=== PATIENT | male | born 1975 | race Caucasian/White ===

== ENCOUNTER 2023-03-23 11:40 | Emergency (ER) | payer BC, SELFPAY ==
[2023-03-23 11:51] VITALS: BP 124/81; PULSE 91; RESP 18; TEMP 36.1; O2SAT 95; BMI 29.1
[2023-03-23 11:59] VITALS: BP 118/86; PULSE 90; RESP 18; O2SAT 95
--- NOTE | 2023-03-23 12:06 | CRLHL7_ITS ---
For Patients: As a result of the 21st Century Cures Act, medical imaging exams and procedure reports are released immediately into your electronic medical record. You may view this report before your referring provider. If you have questions, please contact your health care provider. INDICATION: DIFFUSE ABD PAIN, DIARRHEA, RECTAL PAIN Indication: Diffuse abdominal pain. Diarrhea. Rectal pain. Technique: CT of the abdomen and pelvis. 77 cc of Isovue 370 IV. Coronal/sagittal reconstruction images. Comparison: None. Findings: Lung bases: There is a small sliding-type hiatal hernia. The heart size is normal. No pleural or pericardial effusion. The lung bases demonstrate no acute airspace disease. There is no basilar pneumothorax. There is no suspicious pulmonary nodule. Abdomen/pelvis: Liver morphology is non cirrhotic. There is no solid hepatic mass. No dilation of intrahepatic biliary radicals. Gallstones are present. No associated inflammatory changes. There is no adrenal mass. There is no solid renal mass, hydronephrosis, or perinephric fluid collection. There is no pancreatic mass or pancreatic duct dilation. No glandular atrophy. Spleen size is normal. No gastric or duodenal wall thickening is seen. Calcifications within the transition zone of the prostate. Seminal vesicles are symmetric. Urinary bladder is normal. There is mural thickening present throughout the sigmoid colon. There is no transition point. There is no pneumatosis coli, pneumatosis intestinalis, or drainable fluid collection. No secondary signs for appendicitis are seen. There are nonenlarged inguinal lymph nodes. No inguinal or pelvic sidewall lymphadenopathy. The retroperitoneum and gastrohepatic ligament are normal. Celiac artery and SMA are patent. ZAINAB is patent. IVC is patent. The bone windows demonstrate no suspicious bone lesions. There are minor degenerative changes present at the endplates of the lower thoracic and lumbar spine. Small sclerotic foci in the right proximal femur, likely benign bone islands. Alignment is preserved. Impression: 1. There is mural thickening present within the rectosigmoid colon. These findings are consistent with colitis. Mild engorgement of vasa recta. 2. This may be infectious in nature. Ischemia is unlikely. Visceral artery branches are patent. There are pericolonic lymph nodes, and the differential diagnosis for this finding includes inflammatory bowel disease or Clostridium difficile colitis. 3. No drainable fluid collection, pneumoperitoneum, or transition point. 4. Case reviewed with Dr. Chen, ED, 03/23/23, 1420 hours. Dictated by Austin Hidalgo MD @ 03/23/2023 2:21:22 PM Please note that all CT scans at this facility use dose modulation, iterative reconstruction, and/or weight-based dosing when appropriate to reduce radiation dose to as low as reasonably achievable. Dictated by: Austin Hidalgo MD @ 03/23/2023 14:21:30 (Electronically Signed)
--- NOTE | 2023-03-23 12:08 | ED_ITS ---
HPI - General Adult General Date Seen: 03/23/23 Chief complaint: Diarrhea Stated complaint: diarrhea Time Seen by Provider: 03/23/23 11:45 Source: patient Mode of arrival: ambulatory Limitations: no limitations History of Present Illness HPI narrative: Patient is a 47-year-old male with no pertinent medical problems presenting to the emergency department for diffuse mild abdominal discomfort, diarrhea, rectal pain. He states he had a colonoscopy on March 04. He had some aspiration was placed on Augmentin. He finished that on either March 09 or . He is not sure the exact date. He started to notice on the 12 of March he had chills and felt fatigued. That is when the diarrhea started. States it was combination of soft and watery it has been continuous. Symptoms persisted for about a week and then you started to feel better but was still having the watery diarrhea. He is now noticing every time he has a bowel movement he is having severe rectal pain. External hemorrhoids were seen on his colonoscopy. Diarrhea his not improving. He states he says drinking plenty of fluids but does with acute could use some more. States after he has a bowel movement he feels like he has more stool in him was unable to have any further bowel movement despite the sensation. Denies chest pain, shortness of breath, nausea/vomiting, headache, lightheadedness, dizziness. Related Data Previous Rx's Medication Instructions Recorded vancomycin 125 mg capsule 125 mg PO QID 10 days #40 caps 03/23/23 Review of Systems Status of ROS: Reports: 10 or more systems reviewed and unremarkable except as noted in History and below PFSH PFS Social History Smoking Status: Never smoker How often do you have a drink containing alcohol: never AUDIT-C Alcohol total score: 0 Non-prescribed substance use: denies use service: No Exam Narrative: Exam Narrative: Const: Well-nourished, Well-developed, in no distress Eyes: PERRL, no conjunctival injection, and symmetrical lids HENT: Atraumatic external nose and ears. Moist mucous membranes. Neck: Symmetric, trachea midline, No thyromegaly. CVS: RRR, No murmurs or gallops. Peripheral pulses 2+ and equal in all extremities RESP: Unlabored respiratory effort. Clear to auscultation bilaterally. GI: Nontender/Nondistended, No rebound or guarding. Rectal exam shows no large external hemorrhoids. No thrombosed hemorrhoids. MSK:Extremities w/o deformity, Normal Active ROM Skin: Warm, Dry. No rashes or lesions. Neuro: Normal Muscle tone, No focal neurological deficits. Psych: Awake, Alert, & Oriented x3. Appropriate mood and affect. Const: Vital Signs, click to edit/add: Vital Signs - 24 hr 03/23/23 11:51 03/23/23 11:59 03/23/23 14:11 Temperature 97.0 F L Pulse Rate [Right Radial] 91 90 79 Respiratory Rate 18 18 18 Blood Pressure [Ri ght Upper Arm] 124/81 118/86 114/78 Pulse Oximetry 95 95 97 Oxygen Delivery Me thod Room Air Room Air Room Air 03/23/23 15:02 Temperature 97.0 F L Pulse Rate [Right Radial] 76 Respiratory Rate 18 Blood Pressure [Ri ght Upper Arm] 117/80 Pulse Oximetry 97 Oxygen Delivery Me thod Room Air Course Vital Signs Vital signs: Initial Vital Signs Temperature 97.0 F L 03/23/23 11:51 Temperature Source Temporal Artery Scan 03/23/23 11:51 Pulse Rate 91 03/23/23 11:51 Pulse Rhythm Regular 03/23/23 11:51 Pulse Strength 3+ Normal 03/23/23 11:51 Respiratory Rate 18 03/23/23 11:51 Blood Pressure 124/81 03/23/23 11:51 Blood Pressure Mean 95 03/23/23 11:51 Blood Pressure Position Supine 03/23/23 11:51 Pulse Oximetry 95 03/23/23 11:51 Oxygen Delivery Method Room Air 03/23/23 11:51 Vital Signs Temperature 97.0 F L 03/23/23 11:51 Pulse Rate 91 03/23/23 11:51 Respiratory Rate 18 03/23/23 11:51 Blood Pressure 124/81 03/23/23 11:51 Pulse Oximetry 95 03/23/23 11:51 Oxygen Delivery Method Room Air 03/23/23 11:51 Temperature 97.0 F L 03/23/23 15:02 Pulse Rate 76 03/23/23 15:02 Respiratory Rate 18 03/23/23 15:02 Blood Pressure 117/80 03/23/23 15:02 Pulse Oximetry 97 03/23/23 15:02 Oxygen Delivery Method Room Air 12/25/23 15:02 Medications Administered Medications: Discontinued Medications Generic Name Dose Route Start Last Admin Trade Name Zbigniew PRN Reason Stop Dose Admin Lactated Ringer's 1,000 mls @ 1,000 mls/hr 03/23/23 12:06 03/23/23 12:31 Lactated Ringers 1000 Ml IV 03/23/23 13:05 1,000 mls/hr .Q1H ONE Administration Vancomycin HCl 125 mg 03/23/23 14:33 03/23/23 15:00 Vancomycin 125 Mg Capsule PO 03/23/23 14:34 125 mg ONCE ONE Administration Medical Decision Making MDM Narrative Medical decision making narrative: Patient is a 47-year-old male presenting to emergency department for diarrhea and rectal pain. He has no external hemorrhoids and that could be the cause of those symptoms and I will do a rectal to further evaluate this. His abdominal discomfort and diarrhea is concerning for C diff due to the recent antibiotic use. Symptoms could also be from gastroenteritis. This does not sound like appendicitis, pancreatitis, cholecystitis, diving taking lightest. I will do abdominal CT with IV contrast to further evaluate all of this. Since he did have a heart rate of 91 day since procedure region he does meet the 1st criteria for SIRS and in anticipation for an elevated his like count had due to possible C diff I will do a septic workup including lactate, CBC, CMP. IV given 1 L of lactated Ringer's at this time. Also ordered lipase and COVID/flu Patient's CBC, CMP, lipase, COVID size flu showed no concerning abnormalities. C diff test is positive. CT scan showed diffuse colitis consistent with infectious versus inflammatory. Considering the positive C diff test, the recent antibiotics, and the recent colonoscopy that showed no other abnormalities other than external hemorrhoids this seems most likely. I did do a rectal exam and did did not show any large external hemorrhoid that would be causing pain. Patient be discharged on vancomycin with outpatient follow-up. He is agreeable with this plan. Lab Data Labs: Lab Results 03/23/23 03/23/23 Range/Units 12:20 12:58 WBC 7.70 (4.50-11.00) K/uL RBC 4.86 (4.30-5.90) m/uL Hgb 14.6 (13.5-17.5) gm/dL Hct 43.1 (37.0-53.0) % MCV 89 (80-100) fL MCH 30 (26-34) pg MCHC 34 (32-36) gm/dL RDW Coeff of Tiara 12.2 (11.5-15.5) % Plt Count 393 (140-440) K/uL Neut % (Auto) 71.9 (42.0-72.0) % Lymph % (Auto) 15.5 L (20-44) % Evangeline % (Auto) 9.6 (0.0-11.0) % Eos % (Auto) 2.1 (0.0-7.0) % Baso % (Auto) 0.3 (0.0-3.0) % Neut # (Auto) 5.54 (1.7-7.0) K/uL Lymph # (Auto) 1.20 (0.90-2.90) K/uL Evangeline # (Auto) 0.70 (0.00-0.90) K/UL Eos # (Auto) 0.16 (0.00-0.50) K/uL Baso # (Auto) 0.02 (0.00-0.30) K/uL Abs Immat Gran (auto) 0.05 (0.00-0.30) K/uL Imm/Tot Granulo (auto) 0.6 % Sodium 136 (135-149) mmol/L Potassium 3.4 L (3.6-5.1) mmol/L Chloride 97 (96-114) mmol/L Carbon Dioxide 28 (20-32) mmol/L Anion Gap 11 (7-15) mEq/L BUN 12 (5-24) mg/dL Creatinine 0.8 (0.5-1.5) mg/dL Estimated Creat Clear 97.16 Estimated GFR 108 ml/min Glucose 103 (60-115) mg/dL Lactate 1.6 (0.5-1.9) mmol/L Calcium 9.2 (8.4-10.6) mg/dL Total Bilirubin 0.8 (0.1-1.5) mg/dL AST 21 (12-35) U/L ALT 23 (4-50) U/L Alkaline Phosphatase 60 (40-150) U/L Total Protein 7.3 (6.0-8.3) g/dL Albumin 4.0 (3.3-5.0) g/dL Lipase 31 (23-300) U/L Stl C. diff Tox B Gene POSITIVE A* (Negative) Stl C. diff [id number] PRESUMPTIVE POSITIVE (Negative) SARS-CoV-2 (PCR) Negative SARS-CoV-2 (Negative) Influenza Type A (PCR) Negative PCR FLU A (Negative) Influenza Type B (PCR) Negative PCR FLU B (Negative) Imaging Data CT scan abdomen pelvis: Radiologist's impression: 1. There is mural thickening present within the rectosigmoid colon. These findings are consistent with colitis. Mild engorgement of vasa recta. 2. This may be infectious in nature. Ischemia is unlikely. Visceral artery branches are patent. There are pericolonic lymph nodes, and the differential diagnosis for this finding includes inflammatory bowel disease or Clostridium difficile colitis. 3. No drainable fluid collection, pneumoperitoneum, or transition point. 4. Case reviewed with Dr. Chen, ED, 03/23/23, 1420 hours. Dictated by Austin Hidalgo MD @ 03/23/2023 2:21:22 PM Please note that all CT scans at this facility use dose modulation, iterative reconstruction, and/or weight-based dosing when appropriate to reduce radiation dose to as low as reasonably achievable. Dictated by: Austin Hidalgo MD @ 03/23/2023 14:21:30 Discharge Plan Discharge Clinical Impression: Clostridium difficile infection Patient Disposition: Home, Self-Care Condition: Stable Instructions: C. Diff (Clostridioides Difficile) Infection (DC) Additional Instructions: Take that antibiotics as prescribed. Return to emergency department for new or worsening symptoms. Prescriptions: New vancomycin 125 mg capsule 125 mg PO QID 10 Days Qty: 40 0RF Follow Up/Referrals: Provider,Not a Local [Primary Care Provider] - Stand Alone Forms: [employer] Info Instructions
[2023-03-23 12:27] LABS: Lactate* 1.6 mmol/L (0.5-1.9)
[2023-03-23 12:30] LABS: Basophils Absolute Auto 0.02 K/uL (0.00-0.30); Basophils Percent Auto 0.3 % (0.0-3.0); Eosinophils Absolute Auto 0.16 K/uL (0.00-0.50); Eosinophils Percent Auto 2.1 % (0.0-7.0); Hematocrit 43.1 % (37.0-53.0); Hemoglobin* 14.6 gm/dL (13.5-17.5); Immature Granulocytes Abs Auto 0.05 K/uL (0.00-0.30); Immature Granulocytes Pct Auto 0.6 %; Lymphocytes Percent Auto 15.5 % (20-44); Mean Corpuscular HGB Conc 34 gm/dL (32-36); Mean Corpuscular Hemoglobin 30 pg (26-34); Mean Corpuscular Volume 89 fL (80-100); Monocytes Percent Auto 9.6 % (0.0-11.0); Neutrophils Absolute Auto 5.54 K/uL (1.7-7.0); Neutrophils Percent Auto 71.9 % (42.0-72.0); Platelet Count* 393 K/uL (140-440); RDW Coefficient of Variation % 12.2 % (11.5-15.5); Red Blood Count 4.86 m/uL (4.30-5.90)
[2023-03-23] MEDS: LACTATED RINGERS 1000 ML 1,000 ML IV (12:31)
[2023-03-23 12:33] LABS: Slide Review Reflex No
[2023-03-23 12:50] LABS: Chloride* 97 mmol/L (96-114); Potassium* 3.4 mmol/L (3.6-5.1); Sodium* 136 mmol/L (135-149)
[2023-03-23 12:52] LABS: Anion Gap 11 mEq/L (7-15); Bilirubin Total* 0.8 mg/dL (0.1-1.5); Carbon Dioxide* 28 mmol/L (20-32); Creatinine* 0.8 mg/dL (0.5-1.5); Est. Creatinine Clearance* 97.16; Estimated Glomerular Filt Rate 108 ml/min
[2023-03-23 12:53] LABS: Alanine Aminotransferase* 23 U/L (4-50); Alkaline Phosphatase* 60 U/L (40-150); Aspartate Amino Transferase* 21 U/L (12-35); Blood Urea Nitrogen* 12 mg/dL (5-24); Calcium* 9.2 mg/dL (8.4-10.6); Glucose* 103 mg/dL (60-115); Lipase* 31 U/L (23-300); Total Protein* 7.3 g/dL (6.0-8.3)
[2023-03-23 13:07] LABS: PCR FLU A Negative PCR FLU A (Negative); PCR FLU B Negative PCR FLU B (Negative)
[2023-03-23 13:12] LABS: SARS PCR* Negative SARS-CoV-2 (Negative)
[2023-03-23 14:03] LABS: CDIFFEPI 027 PRESUMPTIVE POSITIVE (Negative)
[2023-03-23 14:11] VITALS: BP 114/78; PULSE 79; RESP 18; O2SAT 97
[2023-03-23 14:17] LABS: C.Difficile POSITIVE (Negative)
[2023-03-23] MEDS: VANCOMYCIN 125 MG CAPSULE PO (15:00)
[2023-03-23 15:02] VITALS: BP 117/80; PULSE 76; RESP 18; TEMP 36.1; O2SAT 97
[2023-03-23 15:23] VITALS: BP 117/80; PULSE 76; RESP 18; TEMP 36.7
== END 2023-03-23 15:24 | disposition home or self-care (01) ==
PROVIDERS: Emergency Provider Student in an Organized Health Care Education/Training Program
DX: R19.7 Diarrhea, unspecified (principal); A04.72 Enterocolitis due to Clostridium difficile, not specified as recurrent
CPT/HCPCS: 36415; 74177; 80053; 83605; 83690; 85025; 87493; 87631; 99283; 99284; J7120; Q9967